=== PATIENT | female | born 1960 | race Caucasian/White ===

== ENCOUNTER 2024-05-14 06:05 | Day surgery (SDC) | payer MEDICARE, SELFPAY ==
[2024-05-07 12:49] VITALS: BMI 25.7
--- NOTE | 2024-05-07 14:45 | HPS.HSE ---
Family Physician
-
Family Physician: NO INTERVIEW UNKNOWN
Chief Complaint
-
Paroxysmal atrial fibrillation and atrial flutter.
History of Present Illness
The patient is a 63 year old female presenting today for paroxysmal atrial fibrillation. The patient reports a history of elevated heart rates with intermittent palpitations secondary to this diagnosis. Her apple watch continues to report
an uptick in her atrial fibrillation episodes. Over the last month, she, on average, has been in atrial fibrillation 20-25% of the time. A previous Holter monitor in January of last year also noted episodes of atrial flutter. She is on current
pharmacological therapy with Metoprolol Succinate. She has been compliant with Xarelto for oral anticoagulation. She is interested in pursuing pulmonary vein isolation and atrial flutter ablation for further arrhythmia management. She denies any
current complaints today such as chest pain, shortness of breath at rest, nausea, vomiting, diarrhea, lightheadedness, dizziness, cough, sore throat, or fever.
Medical History
Past Medical History
Past Medical History: Reports Other
Additional Past Medical History:
1. Paroxysmal atrial fibrillation/atrial flutter, pharmacological therapy with Metoprolol Succinate and oral anticoagulation with Xarelto.
2. Hypertension.
3. Hyperlipidemia.
4. First degree AV block.
5. Sinus bradycardia secondary to Metoprolol, asymptomatic.
6. Mild mitral regurgitation.
7. Pulmonary calcified granuloma on pre-procedural chest CT.
8. GERD.
9. Remote duodenal ulcer.
10. Migraines.
11. Restless leg syndrome.
12. Thyroid nodules.
13. Breast cancer, stage I, status post lumpectomy 2021, chemotherapy, radiation, and current hormonal therapy.
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
15. Osteoarthritis.
16. Osteopenia.
17. Recurrent shingles.
18. Mild hypermagnesemia, oral supplementation discontinued.
19. History of tobacco abuse.
Past Surgical History: Reports Other
Additional Past Surgical History:
1. Lumpectomy.
2. Hysteroscopy and D&C.
3. Appendectomy.
4. Tonsillectomy.
5. Chemotherapy port insertion and subsequent removal.
6. Ear angioma excision.
7. Colonoscopy.
Social History
Tobacco: Former Smoker (Former 1/2 pack per day cigarette smoker who quit tobacco altogether in 2019. )
Alcohol: None
Personal:
Living: Other (She lives with her in a 2 story home. )
Family History
Family History: Not pertinent
Allergies / Home Medications
Allergy/Medication List:
Home medications:
1. Alpha lipoic acid 200 mg p.o. daily.
2. Ascorbic acid 500 mg p.o. daily.
3. Biotin 10,000 mcg p.o. daily.
4. Cholecalciferol 50 mcg p.o. daily.
5. Exemestane 25 mg p.o. daily.
6. Metoprolol Succinate 12.5 mg p.o. daily.
7. Xarelto 20 mg p.o. daily.
8. Ubiquinol 1 capsule p.o. daily.
9. Valsartan 320 mg p.o. daily.
10. Vitamin B complex 1 capsule p.o. daily.
11. Vitamin E 268 mg p.o. daily.
Allergies: Latex. Neomycin. Propolis.
Review of Systems
-
A 12 point ROS was completed and negative except as noted: Yes
Physical Exam
Vital Signs
Blood pressure 140/92. Heart rate 63. Respirations 18. Pulse ox 99% on room air.
Height 5 feet, 8 inches. Weight 76.7 kg. BMI 25.7
Physical Exam
General: Well Developed, Well Nourished and No Apparent Distress
HEENT: NormoCephalic, Moist mucous membranes and Atraumatic
Respiratory: Clear
Cardiac: Bradycardia (with occasional ectopy. )
GI: Soft, Non Tender and Non Distended
Musculoskeletal: Normal Gait & Station
Skin: Warm and Dry
Neuro: AO x 3 and Nonfocal/grossly intact
Psych: Anxious
Laboratory Results
-
DIAGNOSTIC STUDIES as of 05/07/2024: White blood cell count 6.9. Hemoglobin 15.3. Platelet count 255,000. PT 19.0. INR 1.55. Sodium 140. Potassium 4.3. BUN 20. Creatinine 1.0. Glucose 96. Calcium 9.9. Magnesium 2.6. AST 26. ALT 23. Albumin 4.7. Type
and screen B positive.
EKG 05/07/2024: Sinus bradycardia with premature atrial complexes. Anterior infarct, age undetermined.
Chest CT 05/07/2024: Conventional pulmonary venous anatomy. The right inferior pulmonary vein has a 9 mm accessory superior segment right lower lobe pulmonary vein at the superior margin of the atriovenous junction. No filling defect within the left
atrial appendage. Small to moderate pericardial effusion and fluid within superior pericardial recess. Pulmonary calcified granuloma. Incidental small thyroid nodules.
Impression/Plan
-
IMPRESSION/PLAN:
1. Paroxysmal atrial fibrillation and atrial flutter: The patient is in need of pulmonary vein isolation and atrial flutter ablation with Dr. Saad Vazquez on 05/14/2024. The benefits and risks of the procedure have been explained to the patient. The
patient understands these risks and wishes to proceed. She will remain on uninterrupted oral anticoagulation prior to her upcoming procedure. She will take no medications the morning of her procedure.
2. Mild hypermagnesemia: Thankfully the patient reports no symptoms. She was advised to hold her magnesium supplementation. A repeat magnesium will be drawn the morning of her procedure.
3. History of nausea/vomiting with anesthesia: The patient was advised to address her concerns with anesthesia pre-operatively. Of note, she has tolerated Zofran well previously.
[2024-05-14] VITALS (17 sets, daily range): BP systolic 128–168; BP diastolic 78–97
[2024-05-14 08:47] LABS: ACT-LR - POC 277 Seconds (116-155)
--- NOTE | 2024-05-14 09:48 | ITS.CL.ABL ---
Payment Manager - Ablation
Ablation
Procedure Report:
ELECTROPHYSIOLOGY ABLATION STUDY
DATE:: May 14, 2025�����������������������������REFERRING: Dr. Eleazar burch
INDICATION: Paroxysmal supraventricular tachycardia in the form of atrial fibrillation.��Also an ECG which demonstrates atrial tachycardia�flutter and has paroxysmal arrhythmias. Superiorly directed P�flutter waves into 3F.
HISTORY: See H and P.� As above
ANTIARRHYTHMIC DRUG: Metoprolol
PRE-PROCEDURE PK: No atrial thrombus on intracardiac ultrasound. There is a small pericardial effusion preablation and no change post ablation
PRESENTING RHYTHM: Sinus rhythm
'TIME-OUT':��called and confirmed.
SEDATION/ANESTHESIA:��provided via the anesthesia department using general anesthesia (LMA).
INTRAVENOUS/ARTERIAL ACCESS:
Right femoral venous - 8Fr
Left femoral venous - 8 Fr, 6 Fr
Venous closure with [id number] stitch
Ultrasound guidance for bilateral femoral vein access was utilized by me to obtain access with demonstration of normal anatomy
CHADS-VASC Score:
HAS-Bled Score
PROCEDURE:
1.��A decapolar CS catheter was placed within the CS for mapping and pacing.��This was also used as the reference catheter for the 3-D map. The patient did have spontaneous nonsustained atrial tachycardia from the right inferior pulmonary
vein�right superior pulmonary vein cristian with multipolar catheter distinctly early in initiating tachycardia compared to the right atrial decapolar catheter. There was Wenke Bach conduction from the left to the right atrium. P wave morphology of
this nonsustained tachycardia was positive to flat across the precordium and superiorly directed quite similar to the patient's outpatient ECG from my office visit at the preablation consult. This tachycardia was nonsustained and was not seen after
ablation of the pulmonary veins and the left atrial posterior wall. After ablation with PFA in the left atrium EP study with burst pacing from the mitral isthmus, SVC positions as well as extrastimuli from both did not induce any other atrial
tachyarrhythmia and as such PVI plus left atrial posterior wall isolation and isolation of the LA floor was performed as below. No additional ablation was performed beyond this given noninducibility after initial PVI plus posterior wall isolation.
2. The intracardiac ultrasound catheter was positioned in the RA to identify the FO for targeting of transseptal puncture, assist��in identification of the pulmonary vein ostia, monitoring pre and post ablation pulmonary vein flow velocities,
monitoring for 'bubble' formation during RF application as a sign of thermal injury,��and to monitor for pericardial effusion during mapping and ablation procedure.���Left atrial size, LV ejection fraction, and pulmonary vein flows were monitored
pre and post ablation procedure. The other valves were inspected and found to be free of significant regurgitation or stenosis.
3.��Half of the calculated heparin bolus was administered prior to the first transeptal puncture.��Transseptal puncture was performed to diagnose RA and LA pressure so that safety of LA mapping and ablation could be further assessed, and to access
the left atrium and pulmonary veins for mapping and ablation.��This entailed advancing an 16 [place] sheath with RF wire�dilator into the superior vena cava and withdrawing both (monitoring intracardiac ultrasound, fluoroscopy and tip pressure) with
the tip oriented toward the atrial septum.��The fossa ovalis was engaged (indicated by sudden displacement of the sheath tip as well as tenting of the fossa seen on intracardiac ultrasound).��Left atrial access required a pass with the [place]
needle extended.��Left atrial catheter position was confirmed by pressure monitoring (RA mean pressure 8 mm Hg and LA mean pressure 14 mm Hg), LA saturation (99%),��as well as fluoroscopy.��The sheath was advanced over the dilator and positioned in
the left atrium.��This procedure was repeated for the Agilis sheath.��The remainder of the calculated heparin bolus was administered and heparin was
infused to maintain ACT at 300 -350 seconds throughout the case.
4.��RA pacing was performed via the proximal decapolar poles and LA pacing was performed via the distal decapolar poles.
5. A quadrapolar catheter was first positioned at the His position for His Bundle recording which was tagged via the 3-D Navex sytem, and then passed to the RVA for RV pacing and recording.
6. The multipolar catheter and the PFA catheter were placed in each of the LIPV, LSPV, RSPV and the RIPV.��
7.��Next, a 3-D map was created using Navex.���A 3-D reconstructed CT image was compared to the 3-D Navex map to assist in anatomic interpretation, mapping and ablation.��The CT image and the NavX image were fused.
8. A total of 52 lesions were given to the pulmonary veins and the left atrial posterior wall. [place] and basket deliveries were given to each of the pulmonary veins and the posterior wall floor and roof of the left atrium as well as some more
septal interatrial fossa tissue was targeted in the flower pose. Utilizing multipolar catheter entrance next block was confirmed in all 4 pulmonary veins with electrical silence and noncapture in the posterior wall roof floor and interatrial septal
region. After isolation of these regions EP study was performed with extrastimuli and burst pacing down to atrial refractoriness from the SVC RA junction and from the mitral isthmus catheter positions and the patient was noninducible for additional
tachyarrhythmia beyond what was ablated. As such and also given the spontaneous atrial tachyarrhythmias preablation from the right inferior pulmonary vein cristian with P wave morphology much similar to prior organized ECG suggesting atrial flutter
no additional ablation was performed.
9. Normal sinus node and AV yessica function were noted. 0.2 mg of glycopyrrolate were given prior to ablation in the left atrium.
TOTAL FLOURO TIME: 10.6 minutes 123 mGy
TOTAL RF DURATION: 0 minutes
REVERSAL OF HEPARIN: 35 mg of protamine, slow IV administration
COMPLICATIONS:
None
Intracardiac US shows no pericardial effusion post ablation.
SUMMARY:��
Complex left atrial mapping and ablation.
Isolation of all 4 pulmonary veins, isolation of extrapulmonary and substrate including the posterior wall roof and floor of the left atrium as well as additional lesions given to the interatrial septum. Prior to ablation nonsustained atrial
tachycardia from the right inferior pulmonary vein cristian was noted with a P wave morphology similar to outpatient organized ECGs. The patient was noninducible for other tachyarrhythmias post PVI and left atrial posterior wall isolation.
RECOMMENDATIONS:
1. Consider same-day discharge
2. Resume anticoagulation
3.��Out of bed 4 hours
4.��Continue metoprolol
Copy to: Dr. Eleazar burch
--- NOTE | 2024-05-14 13:03 | W.PN.UPDATE ---
Update Note
Progress Note Update
Pt seen post PFA. Bilat groin sites without ht/bleeding, non tender. Post EKG SB 50s, no acute changes. Resume xarelto tonight and continue metoprolol as before. Followup with Dr. Jacobs as scheduled. Home later today if groin sites/tele remain stable.
== END 2024-05-14 14:30 | disposition home or self-care (01) ==
LOC: CATH 06:05
PROVIDERS: ATTENDING PHYSICIAN Internal Medicine Cardiovascular Disease
DX: I48.0 Paroxysmal atrial fibrillation (principal); I48.92 Unspecified atrial flutter; I10 Essential (primary) hypertension; E78.5 Hyperlipidemia, unspecified; I44.0 Atrioventricular block, first degree; I34.0 Nonrheumatic mitral (valve) insufficiency; R00.1 Bradycardia, unspecified; K21.9 Gastro-esophageal reflux disease without esophagitis; J98.4 Other disorders of lung; G43.909 Migraine, unspecified, not intractable, without status migrainosus; G25.81 Restless legs syndrome; E83.41 Hypermagnesemia; E04.2 Nontoxic multinodular goiter; Z85.3 Personal history of malignant neoplasm of breast; M19.90 Unspecified osteoarthritis, unspecified site; M85.80 Other specified disorders of bone density and structure, unspecified site; Z87.891 Personal history of nicotine dependence; Z92.21 Personal history of antineoplastic chemotherapy; Z90.710 Acquired absence of both cervix and uterus; Z90.49 Acquired absence of other specified parts of digestive tract; Z79.01 Long term (current) use of anticoagulants; Z79.811 Long term (current) use of aromatase inhibitors; Z79.899 Other long term (current) drug therapy
CPT/HCPCS: C1732; C1894; C1730; C1892; C1759; 85347; 86900; 86901; 93005; 93656; 93657; C1733; C1766